=== PATIENT | male | born 1965 | race Caucasian/White ===

== ENCOUNTER 2019-05-14 15:45 | Emergency (ER) | payer OTHER ==
[~2019-05-14] VITALS: Ht 162.6 cm; Wt 86.2 kg
[2019-05-14] MEDS ORDERED: AVAPRO150 MG (15:53)
[2019-05-15] MEDS ORDERED: PROTONIX40 MG PO (08:06)
[2019-05-15] MEDS ORDERED: CIPRO500 MG PO (08:06)
[2019-05-15] MEDS ORDERED: METRONIDAZOLE500 MG PO (08:06)
[2019-05-15] MEDS ORDERED: INTESTINEX680 M1 PO (08:06)
== END 2019-05-15 08:57 | disposition home or self-care (01) ==
LOC: ER 15:45
DX: K57.92 Diverticulitis of intestine, part unspecified, without perforation or abscess without bleeding (principal); N20.0 Calculus of kidney; N20.1 Calculus of ureter

== ENCOUNTER 2021-02-02 07:45 | Emergency (ER) | payer OTHER ==
[~2021-02-02] VITALS: Ht 162.6 cm; Wt 85.7 kg
[~2021-02-02 07:45] MED LIST: AVAPRO150 MG; CIPRO500 MG PO; INTESTINEX680 M1 PO; METRONIDAZOLE500 MG PO; PROTONIX40 MG PO
[2021-02-02] MEDS ORDERED: LOSARTAN POTASS50 MG (07:51)
[2021-02-02] MEDS ORDERED: LEVSIN0.125 MG PO (17:58)
[2021-02-02] MEDS ORDERED: CIPRO500 MG PO (17:58)
[2021-02-02] MEDS ORDERED: INTESTINEX680 M1 PO (17:58)
[2021-02-02] MEDS ORDERED: FLAGYL500MG PO (17:58)
== END 2021-02-02 18:14 ==
LOC: ER 07:45
DX: K57.32 Diverticulitis of large intestine without perforation or abscess without bleeding (principal)